=== PATIENT | male | born 1990 | race Caucasian/White ===

== ENCOUNTER 2020-03-29 20:28 | Emergency (ER) | payer OTHER ==
[~2020-03-29] VITALS: Ht 185.4 cm; Wt 90.7 kg
[2020-03-29 20:37] VITALS: Ht 185.4 cm; Wt 90.7 kg
[2020-03-29 22:06] VITALS: BP 140/102
== END 2020-03-29 22:07 | disposition other institution (70) ==
LOC: ED 20:28
DX: T23.002A Burn of unspecified degree of left hand, unspecified site, initial encounter (principal); X08.8XXA Exposure to other specified smoke, fire and flames, initial encounter; Y93.89 Activity, other specified; Y92.89 Other specified places as the place of occurrence of the external cause; Y99.8 Other external cause status
CPT/HCPCS: 90715

== ENCOUNTER 2020-03-29 21:51 | Emergency (ER) | payer OTHER | END 2020-03-29 22:07 | disposition other institution (70) | LOC: ED 21:51 | DX: Z02.89 Encounter for other administrative examinations (principal) ==